=== PATIENT | female | born 1940 | race Two or more races ===

== ENCOUNTER 2021-12-26 18:22 | Emergency (ER) | payer OTHER ==
[~2021-12-26] VITALS: Ht 160 cm; Wt 68.0 kg
== END 2021-12-27 12:21 | disposition home or self-care (01) ==
LOC: ER 18:22
DX: S43.004A Unspecified dislocation of right shoulder joint, initial encounter (principal); W10.9XXA Fall (on) (from) unspecified stairs and steps, initial encounter; Y93.9 Activity, unspecified; Y92.019 Unspecified place in single-family (private) house as the place of occurrence of the external cause; Y99.9 Unspecified external cause status; I10 Essential (primary) hypertension

== ENCOUNTER 2022-02-18 20:57 | Emergency (ER) | payer OTHER ==
[~2022-02-18] VITALS: Ht 160 cm; Wt 68.0 kg
[2022-02-18] MEDS ORDERED: VALSARTAN-HCTZ1 EAC1 (21:15)
[2022-02-19] MEDS ORDERED: ATENOLOL25 MG PO (09:31)
[2022-02-19] MEDS ORDERED: PAXIL20 MG PO (09:31)
[2022-02-19] MEDS ORDERED: NAMENDA5 MG PO (09:33)
== END 2022-02-18 23:49 | disposition home or self-care (01) ==
LOC: ER 20:57
DX: S43.004A Unspecified dislocation of right shoulder joint, initial encounter (principal); M24.411 Recurrent dislocation, right shoulder; W18.30XA Fall on same level, unspecified, initial encounter; Y93.9 Activity, unspecified; Y92.019 Unspecified place in single-family (private) house as the place of occurrence of the external cause; K21.9 Gastro-esophageal reflux disease without esophagitis; I10 Essential (primary) hypertension; S42.291A Other displaced fracture of upper end of right humerus, initial encounter for closed fracture; Z20.822 Contact with and (suspected) exposure to COVID-19

== ENCOUNTER 2022-02-19 09:15 | Emergency (ER) | payer OTHER ==
[~2022-02-19] VITALS: Ht 152.4 cm; Wt 69.9 kg
[~2022-02-19 09:15] MED LIST: VALSARTAN-HCTZ1 EAC1
[2022-02-19] MEDS ORDERED: PAXIL20 MG PO (09:31)
[2022-02-19] MEDS ORDERED: ATENOLOL25 MG PO (09:31)
[2022-02-19] MEDS ORDERED: NAMENDA5 MG PO (09:33)
== END 2022-02-19 20:24 | disposition home or self-care (01) ==
LOC: ER 09:15
DX: S43.004A Unspecified dislocation of right shoulder joint, initial encounter (principal); W19.XXXA Unspecified fall, initial encounter; Y93.9 Activity, unspecified; Y92.9 Unspecified place or not applicable; Z20.822 Contact with and (suspected) exposure to COVID-19; I10 Essential (primary) hypertension

== ENCOUNTER 2022-09-08 21:18 | Emergency (ER) | payer OTHER ==
[~2022-09-08] VITALS: Ht 152.4 cm; Wt 77.1 kg
[~2022-09-08 21:18] MED LIST changes: +ATENOLOL25 MG PO; +NAMENDA5 MG PO; +PAXIL20 MG PO
[2022-09-09] MEDS ORDERED: TENCON 50-3251 EACH PO (07:40)
[2022-09-09] MEDS ORDERED: INTEGRA F CAPS1 EACH PO (07:45)
== END 2022-09-09 08:30 ==
LOC: ER 21:18
DX: G43.909 Migraine, unspecified, not intractable, without status migrainosus (principal)